=== PATIENT | male | born 1995 | race Caucasian/White ===

== ENCOUNTER 2023-09-18 11:50 | Emergency (ER) | payer OTHER ==
[~2023-09-18] VITALS: Ht 177.8 cm; Wt 56.4 kg
[2023-09-18] MEDS: ACETAMINOPHEN 325 MG TAB PO ONE (12:32)
[2023-09-18 13:04] VITALS: BP 110/75; TEMP 97.7; O2SAT 98
== END 2023-09-18 13:15 | disposition home or self-care (01) ==
LOC: M ED 11:50
DX: S30.0XXA Contusion of lower back and pelvis, initial encounter (principal); S00.01XA Abrasion of scalp, initial encounter; Y92.019 Unspecified place in single-family (private) house as the place of occurrence of the external cause; Y93.9 Activity, unspecified; Y99.9 Unspecified external cause status; W10.8XXA Fall (on) (from) other stairs and steps, initial encounter; F17.210 Nicotine dependence, cigarettes, uncomplicated